=== PATIENT | female | born 1975 | race American Indian/Alaskan Native ===

== ENCOUNTER 2018-06-20 11:42 | Emergency (ER) | payer OTHER ==
[2018-06-20 11:54] VITALS: BMI 23.0
[2018-06-20 12:06] LABS: PH,URINE 8.5 (4.7-8.0); URINE BILIRUBIN NEGATIVE (NEGATIVE); URINE BLOOD NEGATIVE (NEGATIVE); URINE GLUCOSE (UA) NEGATIVE (NEGATIVE); URINE LEUKOCYTE ESTERASE TRACE Leu/uL (NEGATIVE); URINE PROTEIN 30 mg/dL (<30 mg/dL); URINE UROBILINOGEN 0.2 E.U./dL (<1 E.U./dL)
[2018-06-20] MEDS ORDERED: Sodium Chloride 0.9% 1,000 ML IV STA (12:06)
[2018-06-20 12:07] LABS: URINE APPEARANCE CLEAR (CLEAR); URINE COLOR YELLOW (YELLOW)
--- NOTE | 2018-06-20 12:14 | ED PDOC ---
Arrival/HPI - General Chief Complaint: Abdominal Pain Time Seen by Provider: 06/20/18 11:56 Historian: Patient - History of Present Illness Narrative History of Present Illness (Text): 06/20/18 12:05 A 43 year old female, whose past medical history includes asthma, presents to the emergency department complaining of epigastric pain with associated nausea and vomiting for 3 days. LMP was 06/09/2018. Patient reports having 2 episodes of vomiting yesterday, and 2 earlier this morning. 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 Patient states she last drank 4 days ago. Also, patient claims she never experienced withdrawal in the past. She mentions she eats in the kitchen every shift, however is uncertain if symptoms may have been caused by anything she may have eaten. Patient denies any fever, chills, diarrhea, hematemesis, or any other complaints at this time. Denies any past surgeries. Notes no pain at this time here in the ER. No PMD Time/Duration: < week (3 days) Past Medical History - Provider Review Nursing Documentation Reviewed: Yes - Infectious Disease Hx of Infectious Diseases: None - Tetanus Immunization Tetanus Immunization: Unknown - Reproductive Menopause: No - Cardiac Hx Cardiac Disorders: No - Pulmonary Hx Respiratory Disorders: Yes Hx Asthma: Yes - Neurological Hx Neurological Disorder: No - HEENT Hx HEENT Disorder: No - Renal Hx Renal Disorder: No - Endocrine/Metabolic Hx Endocrine Disorders: No - Hematological/Oncological Hx Blood Disorders: No - Integumentary Hx Dermatological Disorder: No - Musculoskeletal/Rheumatological Hx Musculoskeletal Disorders: No - Gastrointestinal Hx Gastrointestinal Disorders: No - Genitourinary/Gynecological Hx Genitourinary Disorders: No - Psychiatric Hx Psychophysiologic Disorder: No Hx Depression: No Hx Emotional Abuse: No Hx Physical Abuse: No Hx Substance Use: Yes (CANNABIS) - Past Surgical History Past Surgical History: No Previous - Anesthesia Hx Anesthesia: No - Suicidal Assessment Feels Threatened In Home Enviroment: No Family/Social History - Physician Review Nursing Documentation Reviewed: Yes Family/Social History: No Known Family HX Smoking Status: Light Smoker < 10 Cigarettes Daily Hx Alcohol Use: Yes Frequency of alcohol use: Socially Hx Substance Use: Yes (CANNABIS) Hx Substance Use Treatment: No Allergies/Home Meds Allergies/Adverse Reactions: Allergies seafood Adverse Reaction (Severe, Uncoded 06/20/18 11:55) ANAPHYLAXIS Review of Systems - Physician Review All systems were reviewed & negative as marked: Yes - Review of Systems Constitutional: absent: Fevers, Night Sweats Gastrointestinal: Abdominal Pain (epigastric region), Nausea, Vomiting (2 episodes yesterday and 2 episodes earlier this morning). absent: Diarrhea, Appetite Changes (has been unable to eat due to symptoms.), Hematemesis Physical Exam Vital Signs Reviewed: Yes Vital Signs Temp Pulse Resp BP Pulse Ox 06/20/18 12:57 62 18 160/95 H 100 06/20/18 11:50 98.3 F 72 17 172/117 H 99 06/20/18 11:42 98.3 F 72 17 172/117 H 99 Temperature: Afebrile Blood Pressure: Hypertensive Pulse: Regular Respiratory Rate: Normal Appearance: Positive for: Well-Appearing, Non-Toxic, Comfortable Pain Distress: None Mental Status: Positive for: Alert and Oriented X 3 - Systems Exam Mouth: Present: Moist Mucous Membranes Pharnyx: Present: Normal. No: ERYTHEMA, EXUDATE Respiratory/Chest: Present: Clear to Auscultation (bilaterally), Good Air Exchange. No: Respiratory Distress, Accessory Muscle Use Cardiovascular: Present: Regular Rate and Rhythm, Normal S1, S2. No: Murmurs Abdomen: Present: Tenderness (epigastric region). No: Rebound, Guarding Upper Extremity: Present: Normal Inspection. No: Cyanosis, Edema Lower Extremity: Present: Normal Inspection. No: Edema Neurological: Present: GCS=15, CN II-XII Intact, Speech Normal Skin: Present: Warm, Dry, Normal Color. No: Rashes Psychiatric: Present: Alert, Oriented x 3, Normal Insight, Normal Concentration Medical Decision Making ED Course and Treatment: 06/20/18 12:09 Impression: 43 year old female with epigastric pain, nausea, and vomiting (2 episodes yesterday and 2 earlier today). Physical exam shows epigastric tenderness, no guarding/rebound. Plan: -- EKG -- Chest X-ray -- Labs -- Pepcid -- Zofran -- IV Fluids -- Urinalysis -- Pregancy Test -- Reassess and disposition Progress Notes: EKG: Ordered, reviewed, and independently interpreted the EKG. Rate : 61 BPM Rhythm : NSR Interpretation : No ST-segment elevations or depressions, no T-wave inversions, normal intervals. Comparison : No previous EKG for comparison. 06/20/2018 12:33 Chest X-ray IMPRESSION: No active disease. Dictator: Shayne Roth MD - Lab Interpretations Lab Results: 06/20/18 12:15 06/20/18 12:15 Lab Results 06/20/18 12:15: Sodium 136, Potassium 3.9, Chloride 99, Carbon Dioxide 26, Anion Gap 16, BUN 9, Creatinine 0.6 L, Est GFR ( Amer) > 60, Est GFR (Non -Af Amer) > 60, Random Glucose 93, Calcium 9.6, Magnesium 2.1, Total Bilirubin 0.5, AST 25, ALT 25, Alkaline Phosphatase 66, Troponin I < 0.01, Total Protein 8.4 H, Albumin 4.8, Globulin 3.6, Albumin/Globulin Ratio 1.3, Amylase 126 H, Lipase 223 06/20/18 12:15: WBC 15.5 H D, RBC 4.48, Hgb 14.1, Hct 40.9, MCV 91.3, MCH 31.5, MCHC 34.5, RDW 13.1, Plt Count 268, MPV 11.1 H, Gran % 67.8, Lymph % (Auto) 25.1 , [place] % (Auto) 6.3 H, Eos % (Auto) 0.6 L, Baso % (Auto) 0.2, Gran # 10.54 H, Lymph # (Auto) 3.9 H, [place] # (Auto) 1.0 H, Eos # (Auto) 0.1, Baso # (Auto) 0.03 06/20/18 11:59: Urine Color Yellow, Urine Appearance Clear, Urine pH 8.5, Ur Specific [place] 1.015, Urine Protein 30 H, Urine Glucose (UA) Negative, Urine Ketones Negative, Urine Blood Negative, Urine Nitrate Negative, Urine Bilirubin Negative, Urine Urobilinogen 0.2, Ur Leukocyte Esterase Trace H, Urine RBC 0 - 2 , Urine WBC 5 - 10, Ur Epithelial Cells 10 - 12, Amorphous Sediment Few, Urine Bacteria Many, Urine Other Trichomonas, Urine HCG, Qual Negative I have reviewed the lab results: Yes - RAD Interpretation Radiology Orders: 06/20/18 12:06 CHEST PORTABLE [RAD] Stat - Medication Orders Current Medication Orders: Sodium Chloride (Sodium Chloride 0.9%) 1,000 mls @ 125 mls/hr IV .Q8H STA Stop: 06/20/18 20:05 Last Admin: 06/20/18 12:20 Dose: 125 mls/hr eMAR Start Stop Document 06/20/18 12:20 SRE (Rec: 06/20/18 12:24 SRE [id number]) Intravenous Solution Start Date 06/20/18 Start Time 12:20 End Date 06/20/18 End time 20:20 Total Infusion Time 480 Discontinued Medications Famotidine (Pepcid) 20 mg IVP STAT STA Stop: 06/20/18 12:07 Last Admin: 06/20/18 12:24 Dose: 20 mg IVP Administration Document 06/20/18 12:24 SRE (Rec: 06/20/18 12:24 SRE [id number]) Charges for Administration # of IVP Administrations 1 Ondansetron HCl (Zofran Inj) 4 mg IVP STAT STA Stop: 06/20/18 12:07 Last Admin: 06/20/18 12:24 Dose: 4 mg IVP Administration Document 06/20/18 12:24 SRE (Rec: 06/20/18 12:24 SRE [id number]) Charges for Administration # of IVP Administrations 1 - Scribe Statement The provider has reviewed the documentation as recorded by the Tisha Rice Provider Scribe Attestation: All medical record entries made by the Scribe were at my direction and personally dictated by me. I have reviewed the chart and agree that the record accurately reflects my personal performance of the history, physical exam, medical decision making, and the department course for this patient. I have also personally directed, reviewed, and agree with the discharge instructions and disposition. Disposition/Present on Arrival - Present on Arrival Any Indicators Present on Arrival: No History of DVT/PE: No History of Uncontrolled Diabetes: No Urinary Catheter: No History of Decub. Ulcer: No History Surgical Site Infection Following: None - Disposition Have Diagnosis and Disposition been Completed?: Yes Diagnosis: Gastritis Disposition: HOME/ ROUTINE Disposition Time: 13:58 Patient Plan: Discharge Patient Problems: Current Active Problems Problem Status Onset Gastritis Acute Condition: GOOD Prescriptions: Famotidine [Pepcid] 40 mg PO DAILY #30 tablet Referrals: PCP,NO [Primary Care Provider] - Follow up with primary [facility] [Outside] - Follow up with primary [facility] [Outside] - Follow up with primary [facility] [place] [Outside] - Follow up with primary Forms: [employer] (Sinhala), WORK NOTE
[2018-06-20 12:22] LABS: URINE RBC 0 - 2 /hpf (0-2)
[2018-06-20 12:23] LABS: URINE AMORPHOUS SEDIMENT FEW; URINE BACTERIA MANY (NEG)
[2018-06-20 12:24] LABS: HCG,QUALITATIVE URINE NEGATIVE (NEGATIVE)
--- NOTE | 2018-06-20 12:35 | RAD ---
Date of service: 06/20/2018 HISTORY: epigastric pain and vomiting COMPARISON: No prior. FINDINGS: LUNGS: No active pulmonary disease. PLEURA: No significant pleural effusion identified, no pneumothorax apparent. CARDIOVASCULAR: Normal. OSSEOUS STRUCTURES: No significant abnormalities. VISUALIZED UPPER ABDOMEN: Normal. OTHER FINDINGS: None. IMPRESSION: No active disease.
[2018-06-20 12:39] LABS: BASO # 0.03 K/mm3 (0.0-2.0); BASO % 0.2 % (0.0-3.0); EOS # 0.1 (0.0-0.7); EOS % 0.6 % (1.5-5.0); GRAN # 10.54 (1.4-6.5); GRAN % 67.8 % (50.0-68.0); HEMOGLOBIN 14.1 g/dL (12.0-16.0); LYMPH # 3.9 (1.2-3.4); LYMPH % 25.1 % (22.0-35.0); MEAN CELL VOLUME 91.3 fl (80.0-105.0); MEAN CORPUSCULAR HEMOGLOBIN 31.5 pg (25.0-35.0); MEAN CORPUSCULAR HGB CONC 34.5 g/dl (31.0-37.0); MEAN PLATELET VOLUME 11.1 fl (7.0-11.0); MONO % 6.3 % (1.0-6.0); RBC 4.48 10^6/uL (3.5-6.1); RED CELL DISTRIBUTION WIDTH 13.1 % (11.5-14.5); WHITE BLOOD COUNT 15.5 10^3/ul (4.5-11.0)
[2018-06-20 12:45] LABS: ALB/GLOB RATIO 1.3 (1.1-1.8); ALBUMIN 4.8 g/dL (3.0-4.8); ALT/SGPT 25 U/L (7-56); AMYLASE 126 U/L (35-125); AST/SGOT 25 U/L (14-36); BLOOD UREA NITROGEN 9 mg/dL (7-21); CALCIUM 9.6 mg/dL (8.4-10.5); GFR AFRICAN-AMERICAN > 60; GFR NON-AFRICAN AMERICAN > 60; LIPASE 223 U/L (23-300)
[2018-06-20 12:56] LABS: TROPONIN I < 0.01 ng/mL
[2018-06-20 12:59] VITALS: RESP 18
[2018-06-20 14:05] VITALS: BP 146/90; PULSE 66; TEMP 98
[2018-06-20 14:07] VITALS: O2SAT 98
--- NOTE | 2018-06-20 16:13 | CARD ---
APPROVED REPORT Date of service: 06/20/2018 EKG Measurement Heart [id number] <Conclusion> Normal sinus rhythm Anterior infarct, age undetermined Abnormal ECG
== END 2018-06-20 14:06 | disposition home or self-care (01) ==
LOC: ED 11:42
DX: K29.70 Gastritis, unspecified, without bleeding (principal); F17.210 Nicotine dependence, cigarettes, uncomplicated
CPT/HCPCS: 71045; 80053; 81001; 82150; 83690; 83735; 84484; 84703; 85025; 87086; 93005; 96361; 96374; 96375; 99284; J2405; J7030